=== PATIENT | male | born 1965 | race Caucasian/White ===

== ENCOUNTER → 2018-01-18 13:31 | Outpatient (CLI) | payer OTHER, SELFPAY ==
--- NOTE | 2018-01-18 13:46 | XR_ITS ---
XR knee LT 3V HISTORY: Injury ITS.REASON: ANTERIOR LEFT KNEE PAIN ORDERING PHYSICIAN: Soren Felix MD PATIENT AGE: 52 years COMPARISON: None FINDINGS: There is mild joint space narrowing medially. The tibial spines appear normal. The patella is intact. There may be a small effusion in the suprapatellar bursa. No fracture or dislocation. No lytic or blastic change. Normal mineralization. . No other significant findings IMPRESSION: Minor degenerative change medially, suspect small suprapatellar joint effusion
== END ==
PROVIDERS: PCP Internal Medicine Adolescent Medicine; Visit Provider Internal Medicine Adolescent Medicine
DX: M25.562 Pain in left knee (principal)
CPT/HCPCS: 73562

== ENCOUNTER → 2019-10-27 07:19 | Outpatient (CLI) | payer OTHER, SELFPAY ==
[2019-10-27 14:04] LABS: Alanine Aminotransferase 22 U/L (12-78); Albumin/Globulin Ratio 1.5 (1.1-1.8); Alkaline Phosphatase 61 U/L (38-126); Anion Gap 12.2 mEq/L (5-15); Aspartate Amino Transferase 24 U/L (17-59); Bilirubin,Total 0.5 mg/dl (0.2-1.3); Blood Urea Nitrogen 14 mg/dl (9-20); Calcium 9.2 mg/dl (8.4-10.2); Carbon Dioxide 27 mmol/L (22.0-30.0); Chloride 103 mmol/L (98-107); Chol/HDL Ratio 4.1 (1-3.5); Cholesterol 184 mg/dl (140-200); Estimated Glomerular Filt Rate 89 ml/min (>60); GFR (African American) 108 ML/MIN (>60); Globulin 2.7 g/dL (1.3-3.2); Glucose 114 mg/dl (74-100); HDL Cholesterol 45 mg/dl (40-60); Potassium 4.2 mmoL/L (3.5-5.1); Sodium 138 mmol/L (136-145); Total Protein,Serum 6.7 g/dl (6.3-8.2); Triglycerides 103 mg/dl (30-150); VLDL Cholesterol 21 mg/dL (0-40)
[2019-10-27 14:15] LABS: Direct LDL Cholesterol 129.82 mg/dL (100-129)
[2019-10-27 14:19] LABS: Basophils # 0.1 K/mm3 (0-0.2); Basophils % 0.8 % (0.1-2.0); Eosinophils # 0.4 K/mm3 (0.0-0.4); Eosinophils % 4.8 % (0.1-12.0); Hematocrit 46.3 % (42.0-52.0); Hemoglobin 14.8 g/dL (14.1-18.0); Lymphocytes # 1.9 K/mm3 (0.7-4.5); Lymphocytes % 25.4 % (10-50); Mean Corpuscular HGB Conc 31.9 g/dL (31.8-35.4); Mean Corpuscular Hemoglobin 28.7 pg (27.0-31.2); Mean Platelet Volume 10.4 fl (7.4-10.4); Monocytes # 0.6 K/mm3 (0.1-1.0); Monocytes % 7.8 % (1.7-9.3); Neutrophils # 4.7 K/mm3 (1.8-7.8); Neutrophils % 61.1 % (37.0-80.0); Platelet Count 182 K/mm3 (142-424); Red Blood Count 5.14 M/mm3 (4.60-6.20); White Blood Count 7.6 K/mm3 (4.8-10.8)
[2019-10-27 14:35] LABS: Thyroid Stimulating Hormone 2.04 uIU/mL (0.465-4.68)
[2019-10-28 11:00] LABS: Vitamin B12 338 pg/mL (232-1245)
== END ==
PROVIDERS: Visit Provider Internal Medicine Adolescent Medicine
DX: I10 Essential (primary) hypertension (principal); E03.9 Hypothyroidism, unspecified; E55.9 Vitamin D deficiency, unspecified; E53.8 Deficiency of other specified B group vitamins
CPT/HCPCS: 36415; 80053; 80061; 82306; 82607; 84443; 85025

== ENCOUNTER 2020-09-28 20:23 | Emergency (ER) | payer OTHER, SELFPAY ==
[2020-09-28 20:39] VITALS: BP 120/69; PULSE 77; RESP 18; TEMP 36.7; O2SAT 98; BMI 29.2
[2020-09-28 20:45] VITALS: BMI 29.2
[2020-09-28 20:46] LABS: Apearance,Urine Slightly Cloudy (Clear); Color,Urine Amber (Yellow)
[2020-09-28 20:47] LABS: Glucose,Urine (UA) Negative (Negative); PH,Urine 5.5 (5.0-8.5); Protein,Urine 3+ (Negative); Specific Gravity, Urine > 1.030 (1.005-1.030)
[2020-09-28 20:48] LABS: Bilirubin,Urine 1+ (Negative); Blood, Urine Negative (Negative); Ketones,Urine TRACE (Negative); UTC Leukocyte Esterase,Urine Negative (Negative); UTC Nitrate,Urine Negative (Negative); Urobilinogen,Urine 4 EU/dl (0.2)
--- NOTE | 2020-09-28 20:54 | HMH.EDUTC ---
[facility] [place] Disposition Clinical Impression: Sinusitis Qualifiers: Sinusitis location: unspecified location Chronicity: acute Recurrence: non-recurrent Qualified Code(s): J01.90 - Acute sinusitis, unspecified Disposition: Home, Self-Care Condition on Discharge: Good Instructions: DI for Sinusitis Additional Instructions: Drink plenty of fluids. Take tylenol or ibuprofen for pain or fever. Take the medications as directed. Follow up with your regular doctor. GO TO THE ER FOR ANY WORSENING SYMPTOMS Prescriptions: predniSONE [Prednisone 20mg Tab] 20 mg PO BID 4 Days #8 tab Transmission Status: Received by [facility] Azithromycin [Z-Jose 250mg Tab*] 250 mg PO UD DOSE PK #6 tab Transmission Status: Received by [facility] Referrals: Sorne Felix MD [Primary Care Provider] - Forms: Work/School Release Time of Disposition: 21:23 Medical Decision Making - Medical Records Medical records reviewed: No: I reviewed the patient's medical records. - Romulo Inquiry Pt receiving controlled substance: No Vital Signs: 09/28/20 20:39 09/28/20 21:22 Temperature 98.0 F 98 F Temperature Source Oral Pulse Rate 71 Pulse Rate [Left Radial] 77 Respiratory Rate 18 14 Blood Pressure 122/70 Blood Pressure [Right Arm] 120/69 Blood Pressure Mean [Right Arm] 86 02 Sat by Pulse Oximetry 98 Oxygen Delivery Method Room Air - Lab Data Lab Results 09/28/20 20:45: Urine Color Bianca, Urine Appearance Slightly cloudy, Urine pH 5.5, Ur Specific [place] > 1.030 H, Urine Protein 3+, Urine Glucose (UA) Negative, Urine Ketones Trace, Urine Blood Negative, Urine Nitrate Negative, Urine Bilirubin 1+ A, Urine Urobilinogen 4, Ur Leukocyte Esterase Negative 09/28/20 21:12: Influenza Type A Ag Negative, Influenza Type B Ag Negative [facility] [place] HPI - General Stated complaint: weakness sore throat, fever Time Seen by Provider: 09/28/20 20:54 Mode of Arrival: Ambulatory Source of Information: Patient Limitations: No Limitations Description of Symptoms (Recalled from Triage Doc. by RN): sinus pressure, weakness, worried about dehydration, urine is red, denies any pain or discomfort w/ urination, voided x2 in last 24 hrs HEENT Symptoms (Recalled from RN notes): Yes Resp Symptoms (Recalled from RN notes): No Skin Symptoms (Recalled from RN notes): No MS Symptoms (Recalled from RN notes): No Functional Status (Recalled from RN notes): na - History of Present Illness Provider Complaint: He states that for the past 3 days he has had sinus pressure, low grade fever and he has felt bad. He denies any n/v/d. - Related Data Home Medications Medication Instructions Recorded Confirmed Aspirin [Aspir 81] 81 mg PO DAILY 05/08/18 05/16/18 Ergocalciferol (Vitamin D2) 400 unit PO DAILY 05/08/18 05/16/18 [Vitamin D] Esomeprazole Magnesium [Nexium] 20 mg PO DAILY 05/08/18 05/16/18 Levothyroxine Sodium 75 mcg PO DAILY 05/08/18 05/16/18 [Levothyroxine 75mcg (0.075mg) Tab] Metoprolol Tartrate [Lopressor 25 mg PO BID 05/08/18 05/16/18 25mg tablet] Sennosides/Docusate Sodium [Stool 1 each PO DAILY 05/08/18 05/16/18 Softener-Laxative Tablet] Vitamin B Complex 1 each PO DAILY 05/08/18 05/16/18 Previous Rx's Medication Instructions Recorded Azithromycin [Z-Jose 250mg Tab*] 250 mg PO UD DOSE PK #6 tab 09/28/20 predniSONE [Prednisone 20mg 20 mg PO BID 4 Days #8 tab 09/28/20 Tab] Allergies Allergy/AdvReac Type Severity Reaction Status Date / Time No Known Allergies Allergy Verified 09/28/20 20:32 - Worker's Comp Is this a Worker's Comp case?: No [facility] History - Hepatitis A Screen Drug use history?: No High risk sexual behaviors?: No History of sexually transmitted infection?: No Currently employed?: No Childcare worker?: No Do you have indoor plumbing?: Yes Do you have electricity?: Yes Attestation statement:: This patient has been screened for Hepatitis A risk factors. I
[2020-09-28 21:15] LABS: UTC Influenza A Antigen Negative (Negative)
[2020-09-28 21:16] LABS: UTC Influenza B Antigen Negative (Negative)
[2020-09-28 21:22] VITALS: BP 122/70; PULSE 71; RESP 14; TEMP 36.6
== END 2020-09-28 21:26 | disposition home or self-care (01) ==
PROVIDERS: Emergency Provider Nurse Practitioner Family; PCP Internal Medicine Adolescent Medicine
DX: J01.90 Acute sinusitis, unspecified (principal); K21.9 Gastro-esophageal reflux disease without esophagitis; I10 Essential (primary) hypertension; E03.9 Hypothyroidism, unspecified; Z87.891 Personal history of nicotine dependence; Z79.899 Other long term (current) drug therapy
CPT/HCPCS: 81003; 87804; 99202; G0463; U0003

== ENCOUNTER → 2020-11-03 06:43 | Outpatient (CLI) | payer OTHER, SELFPAY ==
[2020-11-03 13:48] LABS: Basophils # 0.1 K/mm3 (0-0.2); Basophils % 1.6 % (0.1-2.0); Eosinophils # 0.6 K/mm3 (0.0-0.4); Eosinophils % 8.2 % (0.1-12.0); Hematocrit 44.7 % (42.0-52.0); Lymphocytes # 2.6 K/mm3 (0.7-4.5); Lymphocytes % 38.4 % (10-50); Mean Corpuscular HGB Conc 31.3 g/dL (31.8-35.4); Mean Corpuscular Hemoglobin 27.2 pg (27.0-31.2); Mean Platelet Volume 9.4 fl (7.4-10.4); Monocytes # 0.5 K/mm3 (0.1-1.0); Neutrophils % 44.8 % (37.0-80.0); Platelet Count 151 K/mm3 (142-424); Red Blood Count 5.13 M/mm3 (4.60-6.20); White Blood Count 6.7 K/mm3 (4.8-10.8)
[2020-11-03 14:10] LABS: Alanine Aminotransferase 17 U/L (12-78); Albumin/Globulin Ratio 1.6 (1.1-1.8); Alkaline Phosphatase 63 U/L (38-126); Anion Gap 12.2 mEq/L (5-15); Aspartate Amino Transferase 25 U/L (17-59); Bilirubin,Total 0.6 mg/dl (0.2-1.3); Blood Urea Nitrogen 13 mg/dl (9-20); Calcium 8.9 mg/dl (8.4-10.2); Carbon Dioxide 28 mmol/L (22.0-30.0); Chloride 105 mmol/L (98-107); Chol/HDL Ratio 3.7 (1-3.5); Cholesterol 173 mg/dl (140-200); Estimated Glomerular Filt Rate 89 ml/min (>60); GFR (African American) 107 ML/MIN (>60); Globulin 2.5 g/dL (1.3-3.2); Glucose 95 mg/dl (74-100); HDL Cholesterol 47 mg/dl (40-60); Potassium 4.2 mmoL/L (3.5-5.1); Sodium 141 mmol/L (136-145); Total Protein,Serum 6.5 g/dl (6.3-8.2); Triglycerides 85 mg/dl (30-150); VLDL Cholesterol 17 mg/dL (0-40)
[2020-11-03 14:22] LABS: Direct LDL Cholesterol 104.25 mg/dL (100-129)
[2020-11-03 14:40] LABS: Thyroid Stimulating Hormone 2.75 uIU/mL (0.465-4.68)
[2020-11-03 14:57] LABS: Vitamin B12 414 pg/mL (239-931)
== END ==
PROVIDERS: Visit Provider Nurse Practitioner Family
DX: E03.9 Hypothyroidism, unspecified (principal); I10 Essential (primary) hypertension; E78.5 Hyperlipidemia, unspecified; E53.8 Deficiency of other specified B group vitamins
CPT/HCPCS: 36415; 80053; 80061; 82607; 84443; 85025

== ENCOUNTER 2025-03-08 07:08 | Day surgery (SDC) | payer MEDICAID, SELFPAY ==
[2024-12-25 09:27] VITALS: BMI 28.1
--- NOTE | 2025-03-04 07:10 | EXP.HP ---
History of Present Illness *Admission Date: 03/08/25 *History of present illness: Mr. Sifuentes is a 59-year-old gentleman who is here for screening/surveillance colonoscopy secondary to a personal history of adenomatous colon polyps. The patient did have initial screening colonoscopy in May 2018 and had 2 colon polyps (tubular adenomas x 2) removed. The examination is deemed medically necessary for screening colonoscopy. The patient has been seen, interviewed and examined prior to the procedure by both myself and the anesthesia provider. [facility] Disclaimer: The information contained in this section may have been updated after the patient was seen, as this information can be updated by other users. Medical History Encounter for colonoscopy following colon polyp removal Hypothyroid Diabetes mellitus, type 2 Hypertension Surgical History History of hernia surgery History of back surgery Family History Mother A-fib Father Family history of myocardial infarction Social History (Updated 03/08/25 @ 07:52 by Lisa Man CRNA) Smoking Status: Former smoker (15 yrs ago) alcohol intake: never substance use type: unknown current occupational status: employed Travel in the last 8 weeks?: Inside the [place] caffeine: Yes Have you lived/traveled outside [place] in past 30 days?: No Contact w/someone who lives/traveled outside [place] past 30 days?: No Exposure to someone with infectious disease in past 14 days?: No Do you have a fever (greater than 100.4 F or 38 C)?: No Have you tested positive for COVID-19?: No Exposed to someone with COVID-19 in past 14 days?: No Do you have a sore throat?: No Do you have a cough?: No Do you have any weakness?: No Are you experiencing any nausea/vomitting?: No Do you have any diarrhea?: No Are you experiencing any unusual bleeding?: No Do you have any muscle aches/pain?: No Do you have any abdominal pain?: No Are you experiencing loss of taste or smell?: No Review of Systems Review of Systems Review of systems (narrative): Negative *Cardiovascular Comments: Negative *Gastrointestinal Comments: Negative *Genitourinary Comments: Negative *Musculoskeletal Comments: Negative *Neurologic Comments: Negative Meds Home Medications and Allergies Home Medications ?Medication ?Instructions ?Recorded ?Confirmed ?Type aspirin 81 mg tablet,delayed 81 mg PO DAILY Blood thinner 05/08/18 03/08/25 History release (Aspir-) ergocalciferol (vitamin D2) 10 mcg 400 unit PO DAILY Supplement 05/08/18 03/08/25 History (400 unit) tablet esomeprazole magnesium 20 mg 20 mg PO DAILY stomach 05/08/18 03/08/25 History capsule,delayed release (Nexium) levothyroxine 75 mcg tablet 75 mcg PO DAILY thyroid 05/08/18 03/08/25 History metoprolol tartrate 25 mg tablet 25 mg PO BID blood pressure 05/08/18 03/08/25 History sennosides 8.6 mg-docusate sodium 1 ea PO DAILY constipation 05/08/18 03/08/25 History 50 mg tablet (Stool Softener-Laxative) vitamin B complex (Vitamins B 1 ea PO DAILY Supplement 05/08/18 03/08/25 History Complex capsule) metformin 500 mg tablet 500 mg PO DAILY 12/25/24 03/08/25 History red yeast rice 600 mg capsule 600 mg PO DAILY 12/25/24 03/08/25 History sodium,potassium,mag sulfates 17.5 See Rx Instructions PO .COMPLEX 02/22/25 03/08/25 Rx gram-3.13 gram-1.6 gram oral soln #354 mL (Suprep Bowel Prep Kit) New Prescriptions to Start Prescriptions: Allergies Allergy/AdvReac Type Severity Reaction Status Date / Time No Known Allergies Allergy Verified 12/25/24 08:24 Exam *Routine HEENT Exam Head: Present normocephalic Eye: Present EOMI and PERRL ENT: Present mucous membranes moist *Routine Neck Exam Neck: Present supple *Routine Respiratory Exam Respiratory: Present CTA bilaterally *Routine Cardiovascular Exam Cardiovascular: Present RRR *Routine Abdominal Exam Abdominal: Present soft and normoactive bowel sounds; Absent tenderness *Routine Rectal Exam Rectal:: deferred *Routine Genitalia Exam Genitalia:: deferred *Routine Extremities Exam Extremities: Absent cyanosis, clubbing or edema *Routine Skin Exam Skin: Present warm; Absent rash *Routine Neurological Exam Neurological: Present alert and oriented X3 Assessment and Plan *Assessment and plan (1) Personal history of adenomatous and serrated colon polyps: Status: Acute Category: Medical Code(s): Z86.0101 - Personal history of adenomatous and serrated colon polyps (2) Screening for colon cancer: Status: Acute Category: Medical Code(s): Z12.11 - Encounter for screening for malignant neoplasm of colon Plan A/P: 1. Personal history of adenomatous colon polyps is the preprocedural diagnosis. The patient will be anesthetized/sedated using MAC sedation. The patient has been seen and examined. Cardiac and lung assessment prior to the examination is stable. Proceed with planned screening colonoscopy.
[2025-03-05 13:55] VITALS: BMI 27.5
--- NOTE | 2025-03-08 06:58 | HMH.PROCNOTE ---
[facility] Procedure Note Date: 03/08/25 Time: 08:28 Procedure Note:: Colonoscopy Procedure Report: Colonoscopy with cold snare polypectomy Endoscopist: Gutierrez Colon II, MD Referring physician: Soren Felix M.D. Date of Procedure: March 08, 2025 Equipment: Olympus [id number] adult colonoscope Sedation: MAC sedation Indication: Mr. Sifuentes is a 59-year-old gentleman who is here for screening/surveillance colonoscopy secondary to a personal history of adenomatous colon polyps. The patient did have initial screening colonoscopy in May 2018 and had 2 colon polyps (tubular adenomas x 2) removed. The patient reports no abdominal pain, weight loss, change in his bowel habits or rectal bleeding. He reports no family history of colon cancer. The examination is deemed medically necessary for screening colonoscopy. Procedure: Prior to the procedure, a history and physical exam was performed, and patient's medications and allergies were reviewed. The risks, benefits and alternatives of the sedation and procedure were discussed with the patient. All questions were answered and informed consent was obtained. The patient was brought to the procedure room. Patient identification and proposed procedure were verified by the physician and the nurse. The patient was placed in a left lateral decubitus position and the scope was passed under direct vision. Throughout the procedure, the patient's blood pressure, pulse, and oxygen saturations were monitored continuously. The colonoscopy was accomplished without difficulty. The patient tolerated the procedure well. Findings: On digital rectal examination there was normal rectal tone. There were no external hemorrhoids. The prostate was 2+, mildly firm but symmetric without nodules. The colonoscope was introduced through the anal canal to the rectum and advanced to the cecum. The ileocecal valve and appendiceal orifice were identified. The scope was advanced a short distance into the ileum which appeared grossly normal. The scope was then withdrawn into the colon. There were 4 colon polyps (cecum x 1 (2 mm), ascending x 2 (4 and 6 mm) and descending x 1 (7 mm)). These were all removed via cold snare polypectomy. The remaining cecum, ascending and transverse colon and mucosa were grossly normal. There were scattered diverticuli throughout the descending and sigmoid colon (LEFT colon). The rectum itself was normal. Upon retroflexion within the rectum there were grade 1-2 internal hemorrhoids. The preparation was excellent throughout with [place] Preparation Score of 9. The cecal time was 12 minutes. Impression: 1. Colonic polyps x 4 2. Left-sided diverticulosis 3. Grade 1-2 internal hemorrhoids Plan: I will follow-up the polyp histology and recommend repeat screening/surveillance colonoscopy again in 5 years. I would encourage psyllium bulking fiber supplementation on a maintenance basis.
[2025-03-08 07:26] VITALS: BP 139/88; PULSE 59; RESP 16; TEMP 36.3; O2SAT 97; BMI 27.5
[2025-03-08] MEDS: LACTATED RINGERS 1000ML 1,000 ML 50 ML IV (07:36)
--- NOTE | 2025-03-08 07:50 | P.PNANES_ITS ---
[facility] Disclaimer: The information contained in this section may have been updated after the patient was seen, as this information can be updated by other users. Medical History Encounter for colonoscopy following colon polyp removal Hypothyroid Diabetes mellitus, type 2 Hypertension Surgical History History of hernia surgery History of back surgery Family History Mother A-fib Father Family history of myocardial infarction Social History Smoking Status: Former smoker (15 yrs ago) alcohol intake: never substance use type: unknown current occupational status: employed Travel in the last 8 weeks?: Inside the [place] caffeine: Yes [facility] Anesthesia Checklist Patient Identification Patient Identification: Arm Band and Verbal (Name & ) Structural Data Admitted From: Home Planned Operative Procedure/s: colonscopy Consent for Planned Operative Procedure(s) Verified: Yes Verified Documents: Surgical Consent and History and Physical NPO Status Verified Time NPO: 00:00 Additional verifications Anesthesia Reactions: No Previous Colonoscopy: Yes Airway Assessment Mallampati Score:: Class II Dentition: Good Dentition Neurological Assessment Level of Consciousness: Awake, Alert and Appropriate Hx Seizures: No Numbness or tingling in extremities: No Anesthesia Plan Anesthesia Risk discussed: Yes Anesthesia Plan: Verified ASA Class: II Anesthesia Type: MAC
[2025-03-08 07:51] LABS: POC Glucose,Bedside 104 gm/dL (70-110)
[2025-03-08 08:32] VITALS: BP 92/58; PULSE 57; RESP 20; TEMP 36.4; O2SAT 93
[2025-03-08 08:42] VITALS: BP 113/64; PULSE 57; RESP 20; TEMP 36.4; O2SAT 97
[2025-03-08 08:52] VITALS: BP 114/68; PULSE 60; RESP 20; TEMP 36.4; O2SAT 97
[2025-03-08 09:02] VITALS: BP 107/67; PULSE 60; RESP 20; TEMP 36.4; O2SAT 2
== END 2025-03-08 09:16 | disposition home or self-care (01) ==
PROVIDERS: PCP Internal Medicine Adolescent Medicine; Visit Provider Internal Medicine Gastroenterology
PROC: 0DJD8ZZ Inspection of Lower Intestinal Tract, Via Natural or Artificial Opening Endoscopic (ICD-10-PCS; CPT 45378; principal; 2025-03-08 08:30)
DX: Z12.11 Encounter for screening for malignant neoplasm of colon (principal); D12.0 Benign neoplasm of cecum; D12.2 Benign neoplasm of ascending colon; D12.4 Benign neoplasm of descending colon; K57.30 Diverticulosis of large intestine without perforation or abscess without bleeding; K64.0 First degree hemorrhoids; K64.1 Second degree hemorrhoids; I10 Essential (primary) hypertension; E11.9 Type 2 diabetes mellitus without complications; E03.9 Hypothyroidism, unspecified; Z87.891 Personal history of nicotine dependence; Z79.82 Long term (current) use of aspirin; Z79.84 Long term (current) use of oral hypoglycemic drugs; Z86.0101 Personal history of adenomatous and serrated colon polyps
CPT/HCPCS: 45385; 82962; J2003; J2704; J7120